=== PATIENT | female | born 1995 | race Caucasian/White ===

== ENCOUNTER 2018-01-14 09:21 | Emergency (ER) | payer OTHER ==
[2018-01-14] MEDS: ACETAMINOPHEN TAB 650MG DOSE (2X325MG) PO (10:30)
[2018-01-14 10:31] LABS: BASO # 0.1 10^3/uL (0.0-0.2); BASO % 0.6 % (0.0-1.0); EOS # 0.1 10^3/uL (0.0-0.50); EOS % 1.1 % (0.0-3.0); HEMATOCRIT 37.2 % (36.0-47.0); HEMOGLOBIN 12.6 g/dl (12.0-15.5); IMMATURE GRANULOCYTE % 0.4 % (0-3.0); LYMPH # 1.6 10^3/uL (1.5-6.5); LYMPH % 18.8 % (24.0-44.0); MEAN CORPUSCULAR HGB CONC 33.9 g/dl (32.0-36.5); MEAN CORPUSCULAR VOLUME 85.5 fl (80.0-96.0); MONO # 0.9 10^3/uL (0.0-0.8); MONO % 11.1 % (0.0-5.0); NEUTROPHILS # 5.7 10^3/uL (1.8-7.7); PLATELET COUNT, AUTOMATED 187 10^3/uL (150-450); RED BLOOD COUNT 4.35 10^6/uL (4.00-5.40); RED CELL DISTRIBUTION WIDTH 11.9 % (11.5-14.5); WHITE BLOOD COUNT 8.3 10^3/uL (4.0-10.0)
[2018-01-14 10:37] LABS: CONTROL LINE HCG INT CTR LINE PRESENT; HCG, SERUM QUALITATIVE POSITIVE (NEGATIVE)
[2018-01-14 11:19] LABS: HCG, SERUM QUANTITATIVE 8193 MIU/ML
[2018-01-14 11:54] LABS: CHLAMYDIA DNA AMPLIFICATION NEGATIVE (NEGATIVE); GC DNA AMPLIFICATION NEGATIVE (NEGATIVE)
[2018-01-14 12:09] LABS: KETONE, URINE AUTO RFX NEGATIVE (NEGATIVE); LEUKOCYTE ESTERASE UR AUTO RFX NEGATIVE (NEGATIVE); NITRITE, URINE AUTO RFX NEGATIVE (NEGATIVE); RBC, URINE AUTO RFX 0 /HPF (0-3); SPECIFIC GRAVITY UR AUTO RFX 1.001 (1.002-1.035); SQUAM EPITHELIAL CELL UR AURFX 0 /HPF (0-6); WBC, URINE AUTO RFX 0 /HPF (0-3)
[2018-01-14] MEDS: CLINDAMYCIN 150 MG CAP PO (12:14)
== END 2018-01-14 12:30 | disposition home or self-care (01) ==
LOC: M ED 09:21
DX: O99.89 Other specified diseases and conditions complicating pregnancy, childbirth and the puerperium (principal); L05.91 Pilonidal cyst without abscess; Z3A.01 Less than 8 weeks gestation of pregnancy; Z88.1 Allergy status to other antibiotic agents; Z88.8 Allergy status to other drugs, medicaments and biological substances
CPT/HCPCS: 76801

== ENCOUNTER 2019-11-26 10:54 | Day surgery (SDC) | payer OTHER ==
[~2019-11-26] VITALS: Ht 167.6 cm; Wt 96.1 kg
[~2019-11-26 10:54] MED LIST: CLEO300C2 PO; CLIN150C14 PO; NS 1,000 ML IV ONE; PREN200C PO
[2019-11-26] MEDS ORDERED: LIDOCAINE 2% 100MG/5ML SDV (FOR ANES.) As Ordered ONE (13:06)
[2019-11-26] MEDS ORDERED: propofoL 200 MG/20 ML VIAL As Ordered ONE (13:06)
[2019-11-26 13:51] VITALS: BP 125/69
--- NOTE | 2019-12-04 11:31 | ROOR ---
Patient Name: Blessing Ferro Procedure Date: 11/26/2019 12:05 PM Date of : 1995 Age: 24 Room: [facility] Gender: Female Note Status: Finalized Procedure: Total Colonoscopy to Cecum + ileoscopy + Bx Indications: Lower abdominal pain, Rectal bleeding, Change in bowel habits Providers: Arturo Peralta MD Referring MD: WILLY AGUILERA MD Requesting Provider: Medicines: Monitored Anesthesia Care Complications: No immediate complications. Procedure: Pre-Anesthesia Assessment: - The heart rate, respiratory rate, oxygen saturations, blood pressure, adequacy of pulmonary ventilation, and response to care were monitored throughout the procedure. The Colonoscope was introduced through the anus and advanced to the terminal ileum, with identification of the appendiceal orifice and IC valve. The colonoscopy was performed without difficulty. The patient tolerated the procedure well. The quality of the bowel preparation was excellent. Findings: The perianal and digital rectal examinations were normal. Non-bleeding internal hemorrhoids were found during retroflexion. The hemorrhoids were small and Grade I (internal hemorrhoids that do not prolapse). No other significant abnormalities were identified in a careful examination of the remainder of the colon. The terminal ileum appeared normal. Biopsies for histology were taken with a cold forceps from the ascending colon, transverse colon, descending colon and rectosigmoid colon for evaluation of microscopic colitis. The exam was otherwise without abnormality. Impression: - Non-bleeding internal hemorrhoids. - The examined portion of the ileum was normal. - The examination was otherwise normal. - Biopsies were taken with a cold forceps from the ascending colon, transverse colon, descending colon and rectosigmoid colon for evaluation of microscopic colitis. - The exam was otherwise normal to the cecum. - The examined portion of the ileum was normal. Recommendation: - Patient has a contact number available for emergencies. The signs and symptoms of potential delayed complications were discussed with the patient. Return to normal activities tomorrow. Written discharge instructions were provided to the patient. - High fiber diet. - Discharge patient to home. - Continue present medications. - Await pathology results. - Telephone GI clinic for pathology results in 1 week. - Repeat colonoscopy at age 51 for screening purposes. - Return to referring physician. - The findings and recommendations were discussed with the patient. Arturo Peralta MD Arturo Peralta MD 11/26/2019 1:20:09 PM Electronically signed by Arturo Peralta MD Number of Addenda: 0 Note Initiated On: 11/26/2019 12:05 PM Estimated Blood Loss: Estimated blood loss: none.
== END 2019-11-26 13:53 | disposition home or self-care (01) ==
LOC: M OPP 10:54
PROVIDERS: ATTEND Internal Medicine Gastroenterology
DX: K64.0 First degree hemorrhoids (principal); K62.5 Hemorrhage of anus and rectum; R19.4 Change in bowel habit; R10.30 Lower abdominal pain, unspecified; Z83.79 Family history of other diseases of the digestive system; Z88.1 Allergy status to other antibiotic agents